=== PATIENT | male | born 1945 | race Caucasian/White ===

== ENCOUNTER 2019-11-26 14:18 | Inpatient (IN) | payer OTHER ==
[2019-11-26 14:51] LABS: #Eosinphils 0.2 thou/uL (0.0-0.7); #Lymphocytes 2.4 thou/uL (1.20-3.40); #Monocytes 0.8 thou/uL (0.11-0.59); #Neutrophils 7.5 thou/uL (1.40-6.50); %Basophils 0.3 % (0.0-1.0); %Eosinophils 1.5 % (0.0-10.0); %Monocytes 7.8 % (0.0-10.0); %Neutrophils 68.5 % (42.0-75.0); Hemoglobin 11.4 g/dL (14.0-18.0); Mean Corpuscular HGB CONC 32.2 g/dL (32.0-36.0); Mean Corpuscular Hemoglobin 29.5 pg (27.0-31.0); Mean Corpuscular Volume 91.7 fL (78.0-98.0); Mean Platelet Volume 7.2 fL (7.4-10.4); Platelet Count 276 thou/uL (130-400); RBC Distribution Width 13.9 % (11.5-14.5); Red Blood Cell (RBC) Count 3.87 mill/uL (4.70-6.10); White Blood Cell (WBC) Count 10.9 thou/uL (4.8-10.8)
[2019-11-26] MEDS ORDERED: Aspirin Chewable 81 MG TAB ONE (14:58)
[2019-11-26 15:20] LABS: ALT (SGPT) 14 U/L (8-55); AST (SGOT) 19 U/L (5-34); Albumin 3.6 g/dL (3.4-4.8); Alkaline Phosphatase 55 U/L (40-110); Anion Gap 17 mmol/L (10-20); BUN (Urea Nitrogen) 45 mg/dL (8.4-25.7); Bilirubin, Total 0.4 mg/dL (0.2-1.2); CK (CPK) 32 U/L (30-200); Calc. Creatinine Clearance 0 mL/min (70-130); Calcium 8.2 mg/dL (7.8-10.44); Carbon Dioxide 24 mmol/L (23-31); Chloride 99 mmol/L (98-107); Estimated GFR-MDRD 38; Glucose 128 mg/dL (83-110); Lipase 90 U/L (8-78); Potassium 4.9 mmol/L (3.5-5.1); Protein, Total 6.6 g/dL (5.8-8.1); Sodium 135 mmol/L (136-145)
--- NOTE | 2019-11-26 15:36 | RAD ---
CHEST 1 VIEW: INDICATION: History of shortness of breath and chest pain. COMPARISON: Prior exam dated 11/10/2019. FINDINGS: There are pacer pads overlying the left chest wall. Previously seen airspace opacities have resolved . There are persistent areas of scarring involving both lower lobes. Emphysematous change is simila r-appearing. No pleural effusion or pneumothorax is evident. Mild cardiomegaly is stable. Osseous structures are unchanged. IMPRESSION: 1. No acute cardiopulmonary abnormality. 2. Stable chronic findings as above. 3. Resolution of bilateral pulmonary infiltrates. POS: BH
[2019-11-26] MEDS ORDERED: cefTRIAXone\\ROCEPHIN 1 GM VIAL ONE (16:25)
[2019-11-26 17:13] LABS: Bilirubin Negative (Negative); Blood, Urine Negative (Negative); Clarity Clear (Clear); Glucose, Urine (Dipstick) Normal (Negative); Ketone, Urine Negative (Negative); Leukocyte Negative Leu/uL (Negative); Nitrite Negative (Negative); Protein, Urine (Dipstick) Negative (Neg-Trace); Specific Gravity, Urine 1.018 (1.002-1.036); Urobilinogen Normal mg/dL (Less than 2); pH, Urine 5.5 (5.0-9.0)
[2019-11-26 18:57] LABS: Lactic Acid 2.2 mmol/L (0.5-2.2)
[2019-11-26 19:08] LABS: Troponin I Less than 0.010 ng/mL (< 0.028)
--- NOTE | 2019-11-26 21:14 | PDOC.HHP ---
Hospitalist HPI - History of Present Illness Hypotension and palpitation History of Present Illness: This is a 74-year-old male patient with a history of hypertension, diabetes mellitus, CAD, Atrial fibrillation, arthritis who presented to the ED today after noting that his blood pressures were very low and he had some episodes of palpitation. He had no other associated symptoms. He denied any chest pain or shortness of breath. He denied any headache fever chills abdominal pain dysuria frequency diarrhea constipation. On presentation to the ED he was tachycardic with a rate of 132, and atrial fibrillation. He had a leukocytosis of 10.9, mild anemia of 11.4 and hyponatremia of 135. Lactate was 4.6 as presentation and repeat after IV bolus was 2.2. BNP was 108.3. Troponin was 0.01 however he received 3 to 4 mg aspirin in the ED. Urinalysis was within normal limits and no acute events on chest x-ray He was given IV fluids2 L and started on ceftriaxone. Hospitalist team was consulted for admission. Hospitalist ROS - Review of Systems Constitutional: denies: fever, chills, sweats Respiratory: denies: cough, shortness of breath Cardiovascular: reports: palpitations. denies: chest pain, orthopnea, paroxysmal noc. dyspnea, edema Gastrointestinal: denies: nausea, vomiting, abdominal pain, diarrhea Genitourinary: denies: dysuria, frequency, incontinence, hematuria Neurological: denies: weakness, numbness, incoordination, confusion - Medication Medications: Apixaban 5 mg twice daily Lisinopril 5 mg daily Magnesium 40 mg twice daily Metformin 1 g daily Metoprolol 100 mg twice daily Pantoprazole 40 mg daily Simvastatin 40 mg daily Tamsulosin 0.4 mg daily Torsemide 10 mg daily Levofloxacin 750 mg daily Prednisone 10 mg Allergies: No known drug allergies Hospitalist History - Past Medical History Cardiac: reports: AFIB, HTN - Family History Family History: reports: diabetes mellitus - Social History Living Situation: With Family Activity level: uses cane/walker - Exam General - other findings: Patient in bed, in no acute distress. Heart - other findings: S1-S2 present. Tachycardic, no murmurs gallops or rubs. Respiratory - other findings: Entry adequate bilaterally. No rhonchi rales Gastrointestinal - other findings: Soft, nondistended nontender bowel sounds present and normal Extremities: no edema Neurological: cranial nerve grossly intact, no focal deficits Hospitalist Results - Labs Result Diagrams: 11/26/19 14:40 11/26/19 14:40 Lab results: WBC 10.9 thou/uL (4.8-10.8) H 11/26/19 14:40 Hgb 11.4 g/dL (14.0-18.0) L 11/26/19 14:40 Hct 35.5 % (42.0-52.0) L 11/26/19 14:40 MCV 91.7 fL (78.0-98.0) 11/26/19 14:40 Plt Count 276 thou/uL (130-400) 11/26/19 14:40 Neutrophils % 68.5 % (42.0-75.0) 11/26/19 14:40 Sodium 135 mmol/L (136-145) L 11/26/19 14:40 Potassium 4.9 mmol/L (3.5-5.1) 11/26/19 14:40 Chloride 99 mmol/L (98-107) 11/26/19 14:40 Carbon Dioxide 24 mmol/L (23-31) 11/26/19 14:40 BUN 45 mg/dL (8.4-25.7) H 11/26/19 14:40 Creatinine 1.76 mg/dL (0.7-1.3) H 11/26/19 14:40 Glucose 128 mg/dL (83-110) H 11/26/19 14:40 Lactic Acid 2.2 mmol/L (0.5-2.2) 11/26/19 18:37 Calcium 8.2 mg/dL (7.8-10.44) 11/26/19 14:40 Total Bilirubin 0.4 mg/dL (0.2-1.2) 11/26/19 14:40 AST 19 U/L (5-34) 11/26/19 14:40 ALT 14 U/L (8-55) 11/26/19 14:40 Alkaline Phosphatase 55 U/L (40-110) 11/26/19 14:40 Creatine Kinase 32 U/L (30-200) 11/26/19 14:40 Troponin I Less than 0.010 ng/mL (< 0.028) 11/26/19 18:15 B-Natriuretic Peptide 108.3 pg/mL (0-100) H 11/26/19 14:45 Serum Total Protein 6.6 g/dL (5.8-8.1) 11/26/19 14:40 Albumin 3.6 g/dL (3.4-4.8) 11/26/19 14:40 Lipase 90 U/L (8-78) H 11/26/19 14:40 Urine Ketones Negative mg/dL (Negative) 11/26/19 16:36 Urine Blood Negative (Negative) 11/26/19 16:36 Urine Nitrite Negative (Negative) 11/26/19 16:36 Ur Leukocyte Esterase Negative Sary/uL (Negative) 11/26/19 16:36 Hospitalist H&P A/P - Plan Plan: This is a 74-year-old man with a history of atrial fibrillation, diabetes mellitus being admitted on account of sepsis of an unclear origin. Sepsissource unclear Patient had low blood pressures at home Also has leukocytosis, A. fib with RVR, No septic source ofchest x-ray urinalysis and abdominal exam benign Lactate was elevated above 4 currently improved to 2.2 after fluids2 L Blood cultures are pending We will started on ceftriaxonewe will broaden slightly to cefepime and monitor Lactic acidosis Possibly due to sepsis however his general evaluation does not quite fit the sepsis picture This may be due to hypotension at home prior to presentation This is resolving with IV fluids He does not have any signs of liver disease We will monitor. Hypertension Systolic blood pressures less than 100 at home however now within normal range with hydration. He stable We will monitor Hold blood pressure medicationslisinopril and torsemide A. fib with RVR Likely secondary to hypotension/sepsis We will start Eliquis once verified Also metoprolol monitor his blood pressure can sustain Coronary disease Continue statin Received aspirin 3 to 4 mg daily Troponins have remained flat Hyponatremia This is mild We will monitor Diabetes mellitus On home metformin We will start low correctional VTE prophylaxisshould be therapeutic on apixaban Dispositionpending improvement
[2019-11-26 21:28] VITALS: BMI 27.1
[2019-11-26] MEDS ORDERED: Ondansetron ODT 4 MG TAB SL PRN (21:30)
[2019-11-26] MEDS ORDERED: Sodium Chloride 0.9% 1,000 ML IV SCH (21:30)
[2019-11-26] MEDS ORDERED: Acetaminophen 325 MG TAB PO PRN (21:30)
[2019-11-26] MEDS ORDERED: Ondansetron PF 4 MG/2 ML Vial IVP PRN (21:30)
[2019-11-26] MEDS ORDERED: Dextrose 50% Abboject 50 ML SYRINGE SLOW IVP PRN (22:01)
[2019-11-26] MEDS ORDERED: Dextrose 5% in Water 1,000 ML IV PRN (22:01)
[2019-11-26] MEDS ORDERED: HumaLOG 300 UNITS/3 ML VIAL SC PRN (22:01)
[2019-11-27 04:20] LABS: #Basophils 0.1 thou/uL (0.0-0.2); #Eosinphils 0.2 thou/uL (0.0-0.7); #Monocytes 0.7 thou/uL (0.11-0.59); #Neutrophils 4.3 thou/uL (1.40-6.50); %Basophils 0.8 % (0.0-1.0); %Eosinophils 2.8 % (0.0-10.0); %Lymphocytes 27.9 % (21.0-51.0); %Monocytes 9.5 % (0.0-10.0); %Neutrophils 59.1 % (42.0-75.0); Mean Corpuscular Hemoglobin 30.8 pg (27.0-31.0); Mean Corpuscular Volume 93.5 fL (78.0-98.0); Mean Platelet Volume 7.1 fL (7.4-10.4); Platelet Count 210 thou/uL (130-400); RBC Distribution Width 13.7 % (11.5-14.5); Red Blood Cell (RBC) Count 3.24 mill/uL (4.70-6.10); White Blood Cell (WBC) Count 7.2 thou/uL (4.8-10.8)
[2019-11-27 04:44] LABS: ALT (SGPT) 10 U/L (8-55); AST (SGOT) 11 U/L (5-34); Albumin 2.9 g/dL (3.4-4.8); Alkaline Phosphatase 48 U/L (40-110); Anion Gap 12 mmol/L (10-20); BUN (Urea Nitrogen) 33 mg/dL (8.4-25.7); Bilirubin, Total 0.2 mg/dL (0.2-1.2); Calc. Creatinine Clearance 66 mL/min (70-130); Calcium 7.6 mg/dL (7.8-10.44); Carbon Dioxide 26 mmol/L (23-31); Chloride 107 mmol/L (98-107); Estimated GFR-MDRD 57; Globulin 2.7 g/dL (2.4-3.5); Glucose 170 mg/dL (83-110); Potassium 4.6 mmol/L (3.5-5.1); Protein, Total 5.6 g/dL (5.8-8.1); Sodium 140 mmol/L (136-145)
[2019-11-27] MEDS: Cefepime 1 GM in Sodium Chloride 0.9% 100 ML IVPB SCH ×2 (04:54→16:16)
[2019-11-27] MEDS ORDERED: methylPREDNISolone Sod Succ 40 MG VIAL IVP SCH (12:00)
--- NOTE | 2019-11-27 12:26 | RAD ---
LEFT ANKLE 3 VIEWS: HISTORY: left ankle pain FINDINGS: The ankle mortise is maintained. No acute fracture or dislocation is identified.
[2019-11-27] MEDS ORDERED: Apixaban 5 MG TAB PO SCH (12:45)
[2019-11-27] MEDS ORDERED: Torsemide 10 MG TAB PO SCH (12:45)
[2019-11-27] MEDS ORDERED: Tamsulosin HCl 0.4 MG CAP PO SCH (12:45)
[2019-11-27] MEDS: HumaLOG 300 UNITS/3 ML VIAL SC PRN ×2 (12:57→17:42)
[2019-11-27 13:04] LABS: SARS-CoV-2 MS2 Positive; SARS-CoV-2 N Gene Negative; SARS-CoV-2 S Gene Negative; SARS-CoV-2 by NAA Not Detected (NotDetected); SARS-CoV-2 orf1ab Negative
--- NOTE | 2019-11-27 13:36 | PDOC.HOSPP ---
- Subjective Encounter Date: 11/27/19 Encounter Time: 10:00 Subjective: Seen examined in bed. He complained of shortness of breath with slightly increased cough. Also has some pain in his left ankle Denies any dysuria, fever or chest pain.. - Objective Vital Signs & Weight: Vital Signs (12 hours) Temp Pulse Resp BP BP Pulse Ox 11/27/19 12:11 109 H 16 99 11/27/19 08:00 97.5 F L 117 H 20 132/61 97 11/27/19 04:50 98.5 F 105 H 16 119/55 L 97 Weight Weight 189 lb 9.561 oz I&O: 11/26/19 11/27/19 11/28/19 06:59 06:59 06:59 Intake Total 480 240 Output Total 700 Balance -220 240 Result Diagrams: 11/27/19 03:49 11/27/19 03:49 Additional Labs: Accuchecks 11/27/19 11/26/19 05:06 22:13 POC Glucose 152 H 136 H Hospitalist ROS - Medication Medications: Active Medications Generic Name Dose Route Start Last Admin Trade Name Freq PRN Reason Stop Dose Admin Albuterol/Ipratropium 3 ml 11/27/19 11:28 11/27/19 12:11 Duoneb NEB 3 ml Q2H PRN Administration SOB &/or Wheezing Apixaban 5 mg 11/27/19 12:45 11/27/19 12:52 Eliquis PO 11/27/19 15:00 5 mg NOW JODI Administration Cefepime HCl 1 gm/ Sodium 100 mls @ 200 mls/hr 11/27/19 05:00 11/27/19 04:54 Chloride IVPB 100 mls 0500,1700 JODI Administration Insulin Human Lispro 0 units 11/26/19 22:01 11/27/19 12:57 Humalog SC 2 unit .MILD SLIDING SCALE PRN Administration Mild Correctional Scale Metoprolol Succinate 100 mg 11/27/19 12:45 11/27/19 12:53 Toprol Xl PO 11/27/19 15:00 100 mg NOW JODI Administration Tamsulosin HCl 0.4 mg 11/27/19 12:45 11/27/19 12:53 Flomax PO 11/27/19 15:00 0.4 mg NOW JODI Administration Torsemide 10 mg 11/27/19 12:45 11/27/19 12:53 Demadex PO 11/27/19 15:00 10 mg NOW JODI Administration - Exam General - other findings: Patient in bed, awake and alert. Mild respiratory distress Heart - other findings: S1-S2 present. No murmurs gallops or rubs. Respiratory - other findings: Bilateral scattered wheezing. On 2 L oxygen Gastrointestinal - other findings: Soft, nontender nondistended bowel sounds present. Extremities - other findings: Mild swelling of left ankle differential warmth and tenderness Neurological: cranial nerve grossly intact, no focal deficits Psychiatric: A&O x 3 Hosp A/P - Plan This is a 74-year-old male patient with a history of atrial fibrillation diabetes mellitus COPD admitted on account of sepsis of unclear origin. This morning he complains of shortness of breath and wheezing requiring 3 L oxygen which is his home basal level. Sepsis Resolved Infectious focus still unclear Currently on cefepimewe will continue Follow-up on cultures. Mild COPD exacerbation Resume home Symbicort and duo nebs as needed Methylprednisolone 40 mg daily IV We will continue cefepime Oxygen as needed. Repeat chest x-ray in case of any new infiltrates Atrial fibrillation Not in RVR however has sinus tachycardia. Resume home metoprolol. Continue on apixaban Sinus tachycardia In the setting of sepsis Resume home metoprolol Monitor. Hypertension Had hypotension a day ago however now systolic ranging 110s to 130s. Blood pressure controlled at the moment. Starting metoprolol We will hold lisinopril We will start gentle rehydration Monitor blood pressure Left ankle pain This is chronic however slightly more today X-ray Diabetes mellitus On correctional insulin Blood sugar fair DVT prophylaxis Therapeutic on apixaban Disposition: Continue treatment for 1 more day of follow-up on culture results. Likely home
[2019-11-27] MEDS: Sodium Chloride 0.9% 1,000 ML IV SCH (16:18)
--- NOTE | 2019-11-27 16:48 | RAD ---
EXAM: Single view of the chest HISTORY: Fever with possible infection COMPARISON: 11/26/2019 FINDINGS: Single view of the chest shows a normal sized cardiomediastinal silhouette. Atheroscleroti c calcifications are seen in the aorta. There is no evidence of consolidation, mass, or pleural effusion. Degenerative changes are seen in the spine. IMPRESSION: No evidence of acute cardiopulmonary disease
[2019-11-27] MEDS: Mometasone 200 MCG/Formoterol 5 MCG 120 PUFF INHALER INH SCH (18:41)
[2019-11-27] MEDS: Apixaban 5 MG TAB PO SCH (20:34)
[2019-11-27] MEDS ORDERED: Atorvastatin Calcium 20 MG TAB PO SCH (21:00)
[2019-11-28] MEDS ORDERED: Cefepime 1 GM VIAL ONE (04:15)
[2019-11-28] MEDS: Mometasone 200 MCG/Formoterol 5 MCG 120 PUFF INHALER INH SCH (07:18)
[2019-11-28] MEDS: Torsemide 10 MG TAB PO SCH ×2 (08:57→09:31)
[2019-11-28] MEDS: Tamsulosin HCl 0.4 MG CAP PO SCH ×2 (08:57→09:31)
[2019-11-28] MEDS ORDERED: methylPREDNISolone Sod Succ 40 MG VIAL ONE (08:57)
[2019-11-28] MEDS ORDERED: Tamsulosin HCl 0.4 MG CAP ONE (08:57)
[2019-11-28] MEDS ORDERED: Apixaban 5 MG TAB ONE (08:57)
[2019-11-28] MEDS: Apixaban 5 MG TAB PO SCH ×2 (08:57→09:30)
[2019-11-28] MEDS ORDERED: Torsemide 10 MG TAB ONE (08:57)
[2019-11-28] MEDS: methylPREDNISolone Sod Succ 40 MG VIAL IVP SCH ×2 (08:57→09:31)
[2019-11-28] MEDS: Sodium Chloride 0.9% 1,000 ML IV SCH ×2 (09:16→10:40)
[2019-11-28] MEDS: Cefepime 1 GM in Sodium Chloride 0.9% 100 ML IVPB SCH ×2 (09:16→10:40)
[2019-11-28 11:54] VITALS: BP 120/64; TEMP 97.6
== END 2019-11-28 14:32 | disposition home or self-care (01) | DRG 872 ==
LOC: ERS 14:18 → 2NO 16:52
PROVIDERS: ADMIT Student in an Organized Health Care Education/Training Program; ATTEND Student in an Organized Health Care Education/Training Program
DX: A41.9 Sepsis, unspecified organism (principal); E87.1 Hypo-osmolality and hyponatremia; E87.2 Acidosis; J44.1 Chronic obstructive pulmonary disease with (acute) exacerbation; Z20.828 Contact with and (suspected) exposure to other viral communicable diseases; I10 Essential (primary) hypertension; E11.9 Type 2 diabetes mellitus without complications; I25.10 Atherosclerotic heart disease of native coronary artery without angina pectoris; E78.5 Hyperlipidemia, unspecified; I48.91 Unspecified atrial fibrillation; M25.572 Pain in left ankle and joints of left foot; M19.90 Unspecified osteoarthritis, unspecified site; Z79.84 Long term (current) use of oral hypoglycemic drugs
CPT/HCPCS: 36415; 36416; 71045; 80053; 81003; 82550; 83605; 83690; 83880; 84484; 85025; 87040; 87086; 87635; 93005; 94640; 94760; 96361; 96365; J0692; J0696; J2920; J3490; J7620; U0003